=== PATIENT | female | born 1975 | race Caucasian/White ===

== ENCOUNTER 2016-07-12 11:23 | Emergency (ER) | payer MEDICAID ==
[2016-07-12 12:00] LABS: ABSOLUTE BASOPHILS # (AUTO) 0.1 10^3/uL (0.0-0.2); ABSOLUTE EOSINOPHILS # (AUTO) 0.1 10^3/uL (0.0-0.6); ABSOLUTE LYMPHOCYTES (AUTO) 3.3 10^3/uL (0.5-4.7); ABSOLUTE MONOCYTES (AUTO) 1.1 10^3/uL (0.1-1.4); ABSOLUTE NEUT (AUTO) 8.3 10^3/uL (1.7-8.2); BASOPHILS % (AUTO) 0.7 % (0-2); EOSINOPHILS % (AUTO) 0.8 % (0-6); HEMATOCRIT 38.3 % (36.0-47.0); HEMOGLOBIN 12.5 g/dL (12.0-15.5); HGB HCT DIFFERENCE -0.8; LYMPHOCYTES % (AUTO) 25.5 % (13-45); MEAN CORPUSCULAR HGB CONC 32.6 g/dL (32.0-36.0); MEAN CORPUSCULAR VOLUME 89 fl (80-97); MONOCYTES % (AUTO) 8.8 % (3-13); RED BLOOD COUNT 4.31 10^6/uL (3.72-5.28); RED CELL DISTRIBUTION WIDTH 14.4 % (11.5-14.0); SEGMENTED NEUTROPHILS % (AUTO) 64.2 % (42-78); WHITE BLOOD COUNT 12.9 10^3/uL (4.0-10.5)
--- NOTE | 2016-07-12 12:15 | ER Document Report ---
ED General - General Chief Complaint: Dizziness Stated Complaint: POSSIBLE SYNCOPE Mode of Arrival: Medic Information source: Patient Notes: Patient presents emergency department with reports of syncope. Patient reports she was at [employer] all night. They camped out. She slept from approximately 0200 until 7:30 this morning. She did not utilize her CPAP that she normally uses. She reports she ate 2 donuts, a cheese biscuit pop tart and a cup of coffee. She reports she was getting her hair cut for locks of love when she felt lightheaded dizzy, her vision and hearing decreased and she passed out for approximately 5 minutes. She denied chest pain or shortness of breath. She was sitting when this happened and lowered to the ground by the person cutting her hair. She reports this has happened to her, years ago. She also reports that she just finished taking steroids for poison lars and steroid "messes with my sugar". Her BGL was 101 via the paramedics. She reports she felt a little bit of nausea. She was given Zofran by the paramedics and declines medication at this time. Pt is requesting ice chips. She denies fever vomiting diarrhea. Denies recent cold symptoms. Patient answers all questions appropriately no obvious neuro deficits. TRAVEL OUTSIDE OF THE [place] IN LAST 30 DAYS: No - HPI Onset: Just prior to arrival Onset/Duration: Sudden Quality of pain: No pain Associated symptoms: None Exacerbated by: Denies Relieved by: Denies Similar symptoms previously: Yes - years ago Recently seen / treated by doctor: No - Related Data Allergies/Adverse Reactions: No Known Allergies Allergy (Verified 09/28/13 18:58) Past Medical History - General Information source: Patient Last Menstrual Period: IUD - Social History Smoking Status: Never Smoker Chew tobacco use (# tins/day): No Frequency of alcohol use: None Drug Abuse: None Lives with: Family Family History: Reviewed & Not Pertinent - Medical History Medical History: Other - Histoplasmosis Pulmonary Medical History: Reports: Other - sleep apnea GI Medical History: Reports: Hx Gastroesophageal Reflux Disease Psychiatric Medical History: Reports: Hx Depression Past Surgical History: Reports: Hx Genitourinary Surgery - d/c - Immunizations Hx Diphtheria, Pertussis, Tetanus Vaccination: Yes Review of Systems - Review of Systems Notes: Review HPI for review of systems., All other systems negative Physical Exam - Vital signs Vitals: Pulse Ox 97 07/12/16 11:46 - Notes Notes: PHYSICAL EXAMINATION: GENERAL: Well-appearing and in no acute distress Nontoxic looking HEAD: Atraumatic, normocephalic. EYES: Pupils equal round and reactive to light, extraocular movements intact, sclera anicteric, conjunctiva are normal. ENT: nares patent, Moist mucous membranes. NECK: Normal range of motion, supple without lymphadenopathy LUNGS: CTAB and equal. No wheezes rales or rhonchi. HEART: Regular rate and rhythm without murmurs ABDOMEN: Soft, no tenderness. No guarding, no rebound EXTREMITIES: Normal range of motion, no pitting edema. No cyanosis. NEUROLOGICAL: Cranial nerves grossly intact. Normal sensory/motor exams. PSYCH: Normal mood, normal affect. SKIN: Warm, Dry, normal turgor, no rashes or lesions noted - Neurological Neuro grossly intact: Yes Cognition: Normal Orientation: AAOx4 [place] Coma Scale Eye Opening: Spontaneous [place] Coma Scale Verbal: Oriented [place] Coma Scale Motor: Obeys Commands [place] Coma Scale Total: 15 Speech: Normal Cranial nerves: Normal Cerebellar coordination: Normal Additional motor exam normals: Equal hand welt butter - Psychological Associated symptoms: Normal affect, Normal mood Course - Re-evaluation Re-evalutation: 07/12/16 12:34 Patient reports she's feeling better right now. Declines antinausea medicine. Consider syncope differential cardiac arrhythmia to vasovagal to hypotension. Continue cardiac monitoring , labs. 07/12/16 14:40 Patient up and walk to the bathroom without complaints denies nausea or lightheadedness. Patient reports she feels really tired but otherwise fine. No further issue of syncope. Labs unremarkable, orthostatics completed without concerns, EKG SR. Pt was on limited sleep, without her cpap, pt was instructed to follow up with her primary care provider this week. She was also instructed to rest. She verbalized understanding to all instructions. - Vital Signs Vital signs: Temp Pulse Resp BP Pulse Ox 97.9 F 89 20 101/63 99 07/12/16 15:10 07/12/16 15:10 07/12/16 15:10 07/12/16 15:10 07/12/16 15:10 - Laboratory Result Diagrams: 07/12/16 11:36 07/12/16 11:36 Laboratory results interpreted by me: 07/12/16 07/12/16 07/12/16 11:36 11:36 13:49 WBC 12.9 H RDW 14.4 H Absolute Neutrophils 8.3 H Sodium 146.8 H Potassium 3.5 L BUN 27 H Glucose 129 H Urine Protein 30 H Ur Leukocyte Esterase MODERATE H - Diagnostic Test Radiology reviewed: Image reviewed, Reports reviewed - Diagnostic report text EXAM DESCRIPTION: CHEST PA/LAT COMPLETED DATE/TIME: 07/12/2016 1:00 pm REASON FOR STUDY: syncope COMPARISON: 03/25/2015 EXAM PARAMETERS: NUMBER OF VIEWS: two views TECHNIQUE: Digital Frontal and Lateral radiographic views of the chest acquired. RADIATION DOSE: NA LIMITATIONS: none FINDINGS: LUNGS AND PLEURA: No opacities, masses or pneumothorax. No pleural effusion. MEDIASTINUM AND HILAR STRUCTURES: No masses or contour abnormalities. HEART AND VASCULAR STRUCTURES: Heart normal size. No evidence for failure. BONES: No acute findings. HARDWARE: None in the chest. OTHER: No other significant finding. TECHNICAL DOCUMENTATION: JOB ID: [id number] [employer]- All Rights Reserved RAD/CHEST PA/LAT IMPRESSION: NO SIGNIFICANT RADIOGRAPHIC FINDING IN THE CHEST. Stable healed granulomatous disease - EKG Interpretation by In EKG shows normal: Sinus rhythm Discharge - Discharge Clinical Impression: Syncope Qualifiers: Syncope type: unspecified Qualified Code(s): R55 - Syncope and collapse Condition: Stable Disposition: HOME, SELF-CARE Instructions: Syncopal Episode ([facility]), Urinary Tract Infection ([facility]), Nitrofurantoin ([facility]) Additional Instructions: *You have been evaluated for syncope, UTI *Take medication as prescribed for the UTI *Follow up with your primary care provider within 5 days *Return to ED for worsening condition, changes, needs, concerns Prescriptions: Nitrofurantoin/Nitrofuran Mac [Macrobid 100 mg Capsule] 100 mg PO BID #20 capsule Referrals: SCOTT HODGES FNP-C [Primary Care Provider] - Follow up as needed
[2016-07-12 12:21] LABS: ALANINE AMINOTRANSFERASE 21 U/L (9-52); ALBUMIN 3.7 g/dL (3.5-5.0); ALKALINE PHOSPHATASE 52 U/L (38-126); ANION GAP 13 (5-19); ASPARTATE AMINO TRANSFERASE 19 U/L (14-36); BILIRUBIN,DIRECT 0.3 mg/dL (0.0-0.4); BILIRUBIN,TOTAL 0.7 mg/dL (0.2-1.3); BLOOD UREA NITROGEN 27 mg/dL (7-20); CARBON DIOXIDE 30 mmol/L (22-30); CHLORIDE 104 mmol/L (98-107); CREATINE KINASE 127 U/L (30-135); CREATININE RESULT 0.84 mg/dL (0.52-1.25); GLUCOSE 129 mg/dL (75-110); POTASSIUM 3.5 mmol/L (3.6-5.0); SODIUM 146.8 mmol/L (137-145); TOTAL PROTEIN 6.4 g/dL (6.3-8.2)
[2016-07-12] MEDS ORDERED: NORMAL SALINE 1000 ML 1,000 ML IV ONE (12:33)
[2016-07-12 12:45] LABS: CREATINE KINASE MB 1.36 ng/mL (<4.55); TROPONIN I < 0.012 ng/mL
[2016-07-12 14:04] LABS: APPEARANCE,URINE CLOUDY; BILIRUBIN,URINE NEGATIVE (NEGATIVE); GLUCOSE, URINE NEGATIVE (NEGATIVE); KETONES,URINE NEGATIVE (NEGATIVE); LEUKOCYTE ESTERASE,URINE MODERATE (NEGATIVE); NITRITE,URINE NEGATIVE (NEGATIVE); PROTEIN,URINE 30 mg/dL (NEGATIVE); URINE SPECIFIC GRAVITY 1.027; UROBILINOGEN,URINE NEGATIVE mg/dL (<2.0)
[2016-07-12 15:11] VITALS: BP 101/63
--- NOTE | 2016-07-13 17:08 | EKG REPORT ---
SEVERITY:- NORMAL ECG - SINUS RHYTHM : Confirmed by: Ju Roberts MD 13-Jul-2016 17:07:51
== END 2016-07-12 15:10 | disposition home or self-care (01) ==
LOC: ER 11:23
DX: R55 Syncope and collapse (principal); R42 Dizziness and giddiness
CPT/HCPCS: 93005; 99284; 96360; 36415; 87086; 82553; 82550; 84703; 85025; 87088; 80053; 81001; 84484; 71020; 93010; J7030

== ENCOUNTER 2016-07-19 16:09 | Emergency (ER) | payer MEDICAID ==
--- NOTE | 2016-07-19 17:50 | ER Document Report ---
ED Medical Screen (RME) - General Chief Complaint: Chest Pain Stated Complaint: DIFFICULTY BREATHING Mode of Arrival: Ambulatory Information source: Patient Notes: 41-year-old female presents with one-week duration of shortness of breath after a syncopal episode. Patient notes she was seen here after syncopal episode, states it hurts to breathe and that she has had shortness of breath. Denies any fevers or chills nausea vomiting or diarrhea I have greeted and performed a rapid initial assessment of this patient. A comprehensive ED assessment and evaluation of the patient, analysis of test results and completion of the medical decision making process will be conducted by additional ED providers. PHYSICAL EXAMINATION: GENERAL: Well-appearing, well-nourished and in no acute distress. HEAD: Atraumatic, normocephalic. EYES: Pupils equal round extraocular movements intact, conjunctiva are normal. ENT: Nares patent NECK: Normal range of motion LUNGS: No respiratory distress Musculoskeletal: Normal range of motion NEUROLOGICAL: Normal speech, normal gait. PSYCH: Normal mood, normal affect. SKIN: Warm, Dry, normal turgor, no rashes or lesions noted. TRAVEL OUTSIDE OF THE [place] IN LAST 30 DAYS: No - Related Data Allergies/Adverse Reactions: No Known Allergies Allergy (Verified 07/19/16 17:14) Past Medical History Renal/ Medical History: Denies: Hx Peritoneal Dialysis GI Medical History: Reports: Hx Gastroesophageal Reflux Disease Psychiatric Medical History: Reports: Hx Depression Past Surgical History: Reports: Hx Genitourinary Surgery - d/c - Immunizations Hx Diphtheria, Pertussis, Tetanus Vaccination: Yes Physical Exam - Vital signs Vitals: Temp Pulse Resp BP Pulse Ox 97.9 F 81 23 H 151/91 H 98 07/19/16 16:14 07/19/16 16:14 07/19/16 16:14 07/19/16 16:14 07/19/16 16:14 Course - Vital Signs Vital signs: Temp Pulse Resp BP Pulse Ox 97.9 F 81 23 H 151/91 H 98 07/19/16 16:14 07/19/16 16:14 07/19/16 16:14 07/19/16 16:14 07/19/16 16:14
[2016-07-19 18:26] LABS: ABSOLUTE EOSINOPHILS # (AUTO) 0.2 10^3/uL (0.0-0.6); ABSOLUTE MONOCYTES (AUTO) 0.7 10^3/uL (0.1-1.4); ABSOLUTE NEUT (AUTO) 4.7 10^3/uL (1.7-8.2); BASOPHILS % (AUTO) 0.4 % (0-2); EOSINOPHILS % (AUTO) 1.9 % (0-6); HEMATOCRIT 41.9 % (36.0-47.0); HEMOGLOBIN 14.1 g/dL (12.0-15.5); HGB HCT DIFFERENCE 0.4; LYMPHOCYTES % (AUTO) 35.3 % (13-45); MEAN CORPUSCULAR HEMOGLOBIN 29.6 pg (27.0-33.4); MEAN CORPUSCULAR HGB CONC 33.8 g/dL (32.0-36.0); MEAN CORPUSCULAR VOLUME 88 fl (80-97); MONOCYTES % (AUTO) 8.1 % (3-13); RED BLOOD COUNT 4.78 10^6/uL (3.72-5.28); RED CELL DISTRIBUTION WIDTH 14.4 % (11.5-14.0); SEGMENTED NEUTROPHILS % (AUTO) 54.3 % (42-78); WHITE BLOOD COUNT 8.6 10^3/uL (4.0-10.5)
[2016-07-19 18:43] LABS: ALANINE AMINOTRANSFERASE 26 U/L (9-52); ALBUMIN 4.1 g/dL (3.5-5.0); ALKALINE PHOSPHATASE 68 U/L (38-126); ANION GAP 13 (5-19); ASPARTATE AMINO TRANSFERASE 25 U/L (14-36); BILIRUBIN,DIRECT 0.3 mg/dL (0.0-0.4); BILIRUBIN,TOTAL 0.7 mg/dL (0.2-1.3); BLOOD UREA NITROGEN 15 mg/dL (7-20); CALCIUM 9.9 mg/dL (8.4-10.2); CARBON DIOXIDE 23 mmol/L (22-30); CHLORIDE 105 mmol/L (98-107); GLUCOSE 79 mg/dL (75-110); POTASSIUM 4.1 mmol/L (3.6-5.0); SODIUM 141.3 mmol/L (137-145); TOTAL PROTEIN 7.2 g/dL (6.3-8.2)
--- NOTE | 2016-07-19 19:09 | ER Document Report ---
ED General - General Chief Complaint: Chest Pain Stated Complaint: DIFFICULTY BREATHING Mode of Arrival: Ambulatory Information source: Patient Notes: 41-year-old female presents with complaints of shortness of breath of one week duration. Patient denies any fevers or chills. Patient notes that her shortness of breath has been ongoing since she is syncopal episode one week ago at which point she was seen the emergency department evaluated. Patient denies any DVT PE risk factors denies any cardiac history TRAVEL OUTSIDE OF THE [place] IN LAST 30 DAYS: No - HPI Onset: Last week Onset/Duration: Persistent Quality of pain: Achy Severity: Mild Pain Level: 1 Associated symptoms: Shortness of breath Exacerbated by: Denies Relieved by: Denies Similar symptoms previously: Yes Recently seen / treated by doctor: Yes - Related Data Allergies/Adverse Reactions: No Known Allergies Allergy (Verified 07/19/16 17:14) Past Medical History - General Information source: Patient - Social History Smoking Status: Never Smoker Cigarette use (# per day): No Chew tobacco use (# tins/day): No Smoking Education Provided: No Family History: Reviewed & Not Pertinent Patient has suicidal ideation: No Patient has homicidal ideation: No Renal/ Medical History: Denies: Hx Peritoneal Dialysis GI Medical History: Reports: Hx Gastroesophageal Reflux Disease Psychiatric Medical History: Reports: Hx Depression Past Surgical History: Reports: Hx Genitourinary Surgery - d/c - Immunizations Hx Diphtheria, Pertussis, Tetanus Vaccination: Yes Review of Systems - Review of Systems Notes: REVIEW OF SYSTEMS: CONSTITUTIONAL : Denies fever, chills, or sweats. Denies recent illness. EENT: Denies eye, ear, throat, or mouth pain or symptoms. Denies nasal or sinus congestion or discharge. Denies throat, tongue, or mouth swelling or difficulty swallowing. CARDIOVASCULAR: Denies chest pain. Denies palpitations or racing or irregular heart beat. Denies ankle edema. RESPIRATORY: Admits shortness of breath GASTROINTESTINAL: Denies abdominal pain or distention. Denies nausea, vomiting , or diarrhea. Denies blood in vomitus, stools, or per rectum. Denies black, tarry stools. Denies constipation. GENITOURINARY: Denies difficulty urinating, painful urination, burning, frequency, blood in urine, or discharge. FEMALE GENITOURINARY: Denies vaginal bleeding, heavy or abnormal periods, irregular periods. Denies vaginal discharge or odor. MUSCULOSKELETAL: Denies back or neck pain or stiffness. Denies joint pain or swelling. SKIN: Denies rash, lesions or sores. HEMATOLOGIC : Denies easy bruising or bleeding. LYMPHATIC: Denies swollen, enlarged glands. NEUROLOGICAL: Denies confusion or altered mental status. Denies passing out or loss of consciousness. Denies dizziness or lightheadedness. Denies headache. Denies weakness or paralysis or loss of use of either side. Denies problems with gait or speech. Denies sensory loss, numbness, or tingling. Denies seizures. PSYCHIATRIC: Denies anxiety or stress. Denies depression, suicidal ideation, or homicidal ideation. ALL OTHER SYSTEMS REVIEWED AND NEGATIVE. Dictation was performed using [employer] voice recognition software PHYSICAL EXAMINATION: GENERAL: Well-appearing, well-nourished and in no acute distress. HEAD: Atraumatic, normocephalic. EYES: Pupils equal round and reactive to light, extraocular movements intact, conjunctiva are normal. ENT: Nares patent, oropharynx clear without exudates. Moist mucous membranes. NECK: Normal range of motion, supple without lymphadenopathy LUNGS: Breath sounds clear to auscultation bilaterally and equal. No wheezes rales or rhonchi. HEART: Regular rate and rhythm without murmurs ABDOMEN: Soft, nontender, nondistended abdomen. No guarding, no rebound. No masses appreciated. Female : deferred Musculoskeletal: Normal range of motion, no pitting or edema. No cyanosis. NEUROLOGICAL: Cranial nerves grossly intact. Normal speech, normal gait. Normal sensory, motor exams PSYCH: Normal mood, normal affect. SKIN: Warm, Dry, normal turgor, no rashes or lesions noted. Physical Exam - Vital signs Vitals: Temp Pulse Resp BP Pulse Ox 97.9 F 81 23 H 151/91 H 98 07/19/16 16:14 07/19/16 16:14 07/19/16 16:14 07/19/16 16:14 07/19/16 16:14 Course - Re-evaluation Re-evalutation: 07/19/16 21:11 Physical examination noted no significant abnormality, vital signs were stable, patient's blood work noted no significant abnormality either d-dimer was noted to be negative. Chest x-ray was normal. Patient does have a field contact person due to a history of histoplasmosis and I have requested that she follow up with him immediately for reevaluation Otherwise patient reevaluation is in no distress satting 98% on room air and stable for discharge Patient notes chest pain only occurs on inspiration and does not appear to be cardiac in nature After performing a Medical Screening Examination, I estimate there is LOW risk for ACUTE CORONARY SYNDROME, RESPIRATORY FAILURE, SEPSIS OR MENINGITIS, thus I consider the discharge disposition reasonable. I have reevaluated this patient multiple times and no significant life threatening changes are noted. The patient and I have discussed the diagnosis and risks, and we agree with discharging home with close follow-up. We also discussed returning to the Emergency Department immediately if new or worsening symptoms occur. We have discussed the symptoms which are most concerning (e.g., changing or worsening pain, trouble swallowing or breathing, neck stiffness, fever) that necessitate immediate return. 07/19/16 21:12 - Vital Signs Vital signs: Temp Pulse Resp BP Pulse Ox 98.0 F 73 16 136/80 H 98 07/19/16 19:18 07/19/16 19:18 07/19/16 19:18 07/19/16 19:18 07/19/16 19:18 - Laboratory Result Diagrams: 07/19/16 18:00 07/19/16 18:00 Laboratory results interpreted by me: 07/19/16 18:00 RDW 14.4 H - Diagnostic Test Radiology reviewed: Image reviewed, Reports reviewed - No acute abnormality Discharge - Discharge Clinical Impression: SOB (shortness of breath) Chest pain Qualifiers: Chest pain type: unspecified Qualified Code(s): R07.9 - Chest pain, unspecified Condition: Stable Disposition: HOME, SELF-CARE Instructions: Chest Pain of Unclear Cause ([facility]) Referrals: SCOTT HODGES, LICENSED INSURANCE AGENT-C [Primary Care Provider] - Follow up as needed BERNARDA BARKER MD [ACTIVE STAFF] - Follow up in 3-5 days
[2016-07-19 19:20] VITALS: BP 136/80
--- NOTE | 2016-07-20 10:22 | EKG REPORT ---
SEVERITY:- NORMAL ECG - SINUS RHYTHM : Confirmed by: Brigette Lay 20-Jul-2016 10:21:38
== END 2016-07-19 19:25 | disposition home or self-care (01) ==
LOC: ER 16:09
DX: R06.02 Shortness of breath (principal); R07.9 Chest pain, unspecified
CPT/HCPCS: 36415; 71020; 80053; 85025; 85379; 93005; 93010; 99285

== ENCOUNTER 2018-04-13 11:55 | Emergency (ER) | payer MEDICAID, OTHER ==
--- NOTE | 2018-04-13 13:09 | ER Document Report ---
ED Medical Screen (RME) - General Chief Complaint: Numbness Stated Complaint: NUMBESS Time Seen by Provider: 04/13/18 13:01 Primary Care Provider: SCOTT HODGES FNP-C [Primary Care Provider] - Follow up as needed Mode of Arrival: Ambulatory Information source: Patient Notes: Patient presents emergency department for possible stroke symptoms. She reports on April 10, she experienced numbness to her right side. She also reports she had slurred speech and some confusion. She reports now she is just having pain on the right side. She contacted her provider, Dr. Quintanilla, and was instructed to come to the emergency department for possible stroke. Patient denies history of stroke. Reports the same thing happened on her left side sometime last year but it went away. She reports the symptoms lasted all day but went away at night. She reports her right hand feels slightly weak. She does discuss cervical radiculopathy. Denies trauma. Denies fever vomiting diarrhea. No obvious neuro deficits noted. I have greeted and performed a rapid initial assessment of this patient. A comprehensive ED assessment and evaluation of the patient, analysis of test results and completion of the medical decision making process will be conducted by additional ED providers. Dictation of this chart was performed using voice recognition software; there fore, there may be some unintended grammatical errors. TRAVEL OUTSIDE OF THE [place] IN LAST 30 DAYS: No - Related Data Allergies/Adverse Reactions: No Known Allergies Allergy (Verified 04/13/18 11:57) Past Medical History Renal/ Medical History: Denies: Hx Peritoneal Dialysis GI Medical History: Reports: Hx Gastroesophageal Reflux Disease Psychiatric Medical History: Reports: Hx Depression Past Surgical History: Reports: Hx Genitourinary Surgery - d/c - Immunizations Hx Diphtheria, Pertussis, Tetanus Vaccination: Yes Physical Exam - Vital signs Vitals: Temp Pulse Resp BP Pulse Ox 98.6 F 86 20 149/86 H 96 04/13/18 12:04/13/18 12:04/13/18 12:04/13/18 12:04/13/18 12: Course - Vital Signs Vital signs: Temp Pulse Resp BP Pulse Ox 98.6 F 86 20 149/86 H 96 04/13/18 12:04/13/18 12:04/13/18 12:04/13/18 12:19 12:19 Doctor's Discharge - Discharge Referrals: SCOTT HODGES, FOOD BEVERAGE SUPERVISOR-C [Primary Care Provider] - Follow up as needed
[2018-04-13 13:59] LABS: APPEARANCE,URINE SLIGHTLY-CLOUDY; BILIRUBIN,URINE NEGATIVE (NEGATIVE); COLOR,URINE YELLOW; GLUCOSE, URINE NEGATIVE (NEGATIVE); KETONES,URINE NEGATIVE (NEGATIVE); LEUKOCYTE ESTERASE,URINE NEGATIVE (NEGATIVE); NITRITE,URINE NEGATIVE (NEGATIVE); PROTEIN,URINE 30 mg/dL (NEGATIVE); URINE SPECIFIC GRAVITY 1.023; UROBILINOGEN,URINE NEGATIVE mg/dL (<2.0)
[2018-04-13 14:03] LABS: PROTHROMBIN TIME 12.6 SEC (11.4-15.4)
[2018-04-13 14:04] LABS: PARTIAL THROMBOPLASTIN TIME 30.8 SEC (23.5-35.8)
[2018-04-13 14:05] LABS: ABSOLUTE EOSINOPHILS # (AUTO) 0.1 10^3/uL (0.0-0.6); ABSOLUTE LYMPHOCYTES (AUTO) 2.8 10^3/uL (0.5-4.7); ABSOLUTE MONOCYTES (AUTO) 0.7 10^3/uL (0.1-1.4); ABSOLUTE NEUT (AUTO) 4.7 10^3/uL (1.7-8.2); BASOPHILS % (AUTO) 0.3 % (0-2); EOSINOPHILS % (AUTO) 1.1 % (0-6); HEMATOCRIT 38.7 % (36.0-47.0); HEMOGLOBIN 12.9 g/dL (12.0-15.5); LYMPHOCYTES % (AUTO) 33.5 % (13-45); MEAN CORPUSCULAR HEMOGLOBIN 29.5 pg (27.0-33.4); MEAN CORPUSCULAR HGB CONC 33.4 g/dL (32.0-36.0); MEAN CORPUSCULAR VOLUME 88 fl (80-97); MONOCYTES % (AUTO) 8.3 % (3-13); PLATELET COUNT 433 10^3/uL (150-450); RED BLOOD COUNT 4.38 10^6/uL (3.72-5.28); RED CELL DISTRIBUTION WIDTH 14.3 % (11.5-14.0); SEGMENTED NEUTROPHILS % (AUTO) 56.8 % (42-78); TOTAL CELLS COUNTED % (AUTO) 100 %; WHITE BLOOD COUNT 8.3 10^3/uL (4.0-10.5)
[2018-04-13 14:16] LABS: ALANINE AMINOTRANSFERASE 13 U/L (9-52); ALBUMIN 4.4 g/dL (3.5-5.0); ALKALINE PHOSPHATASE 64 U/L (38-126); ANION GAP 7 (5-19); ASPARTATE AMINO TRANSFERASE 33 U/L (14-36); BILIRUBIN,DIRECT 0.3 mg/dL (0.0-0.4); BILIRUBIN,TOTAL 0.4 mg/dL (0.2-1.3); BLOOD UREA NITROGEN 13 mg/dL (7-20); CALCIUM 8.9 mg/dL (8.4-10.2); CARBON DIOXIDE 30 mmol/L (22-30); CHLORIDE 105 mmol/L (98-107); GLUCOSE 81 mg/dL (75-110); POTASSIUM 4.4 mmol/L (3.6-5.0); SODIUM 141.7 mmol/L (137-145); TOTAL PROTEIN 7.1 g/dL (6.3-8.2)
--- NOTE | 2018-04-13 14:34 | RADIOLOGY REPORT (SQ) ---
EXAM DESCRIPTION: CT HEAD WITHOUT COMPLETED DATE/TIME: 04/13/2018 2:22 pm REASON FOR STUDY: stroke symptoms, numbness, slurred speech COMPARISON: None. TECHNIQUE: Axial images acquired through the brain without intravenous contrast. Images reviewed wi th bone, brain and subdural windows. Additional sagittal and coronal reconstructions were generated. Images stored on PACS. All CT scanners at this facility use dose modulation, iterative reconstruction, and/or weight based d osing when appropriate to reduce radiation dose to as low as reasonably achievable (ALARA). [facility]: Dose Right [facility]: CareDose [facility]: Dose Right [facility]: Teradose 4D [facility]: Parcel RADIATION DOSE: CT Rad equipment meets quality standard of care and radiation dose reduction techniq ues were employed. CTDIvol: 53.2 mGy. DLP: 1017 mGy-cm. mGy. LIMITATIONS: None. FINDINGS: VENTRICLES: Normal size and contour. CEREBRUM: No masses. No hemorrhage. No midline shift. No evidence for acute infarction. Normal gra y/white matter differentiation. No areas of low density in the white matter. CEREBELLUM: No masses. No hemorrhage. No alteration of density. No evidence for acute infarction. EXTRAAXIAL SPACES: No fluid collections. No masses. ORBITS AND GLOBE: No intra- or extraconal masses. Normal contour of globe without masses. CALVARIUM: No fracture. PARANASAL SINUSES: No fluid or mucosal thickening. SOFT TISSUES: No mass or hematoma. OTHER: No other significant finding. IMPRESSION: No acute intracranial pathology. No noncontrast evidence of stroke or hemorrhage. EVIDENCE OF ACUTE STROKE: NO. COMMENT: Quality ID # [id number]: Final reports with documentation of one or more dose reduction techniques (e.g., Automated exposure control, adjustment of the mA and/or kV according to patient size, use of iterative reconstruction technique) TECHNICAL DOCUMENTATION: JOB ID: [id number] [employer]- All Rights Reserved Reading location - IP/workstation name: [email or web address]
--- NOTE | 2018-04-13 15:30 | ER Document Report ---
ED General - General Chief Complaint: Numbness Stated Complaint: NUMBESS Time Seen by Provider: 04/13/18 13:01 Primary Care Provider: SCOTT HODGES FNP-C [Primary Care Provider] - Follow up as needed Mode of Arrival: Ambulatory Notes: 42-year-old female presents the emergency department for complaints of right upper and lower extremity numbness that occurred Thursday morning. Patient s tates that she woke up around 5 AM and heard a noise in her right ear. She went back to sleep and woke up a few hours later and noticed when she got out of bed that she had some numbness in the right upper and lower extremities. Patient thought that she just slept on that side and that is why she had the numbness. Patient states that she continued to have the symptoms all day. Symptoms completely resolved. She contacted her primary care physician yesterday via email to discuss if she should be concerned about the symptoms and she was told to go to the emergency department for an evaluation. Patient says that her symptoms have completely improved and she did not feel that she needed to come to the emergency department yesterday. Patient states that her son made her come in today for an evaluation. Patient states that she is currently completely asymptomatic. Patient denies any vision changes, speech changes, numbness, tingling, weakness, gait issues. Patient denies a history of old strokes. She denies any hypertension, hyperlipidemia. Patient denies any trauma or injury. She is not on any blood thinners. Patient does have complaints of right upper extremity pain. She states that this is chronic. Patient has cervical radiculopathy. TRAVEL OUTSIDE OF THE [place] IN LAST 30 DAYS: No - HPI Onset: Other - 3 days Quality of pain: No pain Severity: None Pain Level: Denies Associated symptoms: None Exacerbated by: Denies Relieved by: Denies Similar symptoms previously: No Recently seen / treated by doctor: No - Related Data Allergies/Adverse Reactions: No Known Allergies Allergy (Verified 04/13/18 11:57) Past Medical History - General Information source: Patient - Social History Smoking Status: Former Smoker Frequency of alcohol use: None Drug Abuse: None Family History: Reviewed & Not Pertinent Patient has suicidal ideation: No Patient has homicidal ideation: No Renal/ Medical History: Denies: Hx Peritoneal Dialysis GI Medical History: Reports: Hx Gastroesophageal Reflux Disease, Hx Hiatal Hernia Psychiatric Medical History: Reports: Hx Depression Past Surgical History: Reports: Hx Genitourinary Surgery - d/c - Immunizations Hx Diphtheria, Pertussis, Tetanus Vaccination: Yes Review of Systems - Review of Systems Constitutional: No symptoms reported EENT: No symptoms reported Cardiovascular: No symptoms reported Respiratory: No symptoms reported Gastrointestinal: No symptoms reported Genitourinary: No symptoms reported Female Genitourinary: No symptoms reported Musculoskeletal: No symptoms reported Skin: No symptoms reported Hematologic/Lymphatic: No symptoms reported Neurological/Psychological: Numbness -: Yes All other systems reviewed and negative Physical Exam - Vital signs Vitals: Temp Pulse Resp BP Pulse Ox 98.6 F 86 20 149/86 H 96 04/13/18 12:19 04/13/18 12:19 04/13/18 12:19 04/13/18 12:04/13/18 12:19 - Notes Notes: PHYSICAL EXAMINATION: GENERAL: Well-appearing, well-nourished and in no acute distress. HEAD: Atraumatic, normocephalic. EYES: Pupils equal round and reactive to light, extraocular movements intact, conjunctiva are normal. ENT: Nares patent, oropharynx clear without exudates. Moist mucous membranes. NECK: Normal range of motion, supple without lymphadenopathy LUNGS: Breath sounds clear to auscultation bilaterally and equal. No wheezes rales or rhonchi. HEART: Regular rate and rhythm without murmurs ABDOMEN: Soft, nontender, nondistended abdomen. No guarding, no rebound. No masses appreciated. Female : deferred Musculoskeletal: Normal range of motion, no pitting or edema. No cyanosis. NEUROLOGICAL: Cranial nerves grossly intact. Normal speech, normal finger to nose and gait. Normal sensory, motor exams PSYCH: Normal mood, normal affect. SKIN: Warm, Dry, normal turgor, no rashes or lesions noted. Course - Re-evaluation Re-evalutation: 04/13/18 15:32 Patient seen and evaluated. NIH 0. Not a TPA candidate. Patient has no neuro deficits. Patient states that her symptoms completely resolved. Labs were obtained and are normal. Head CT was obtained and does not show an acute process. I discussed these results with the patient and I discussed admission with the patient. Patient declines admission. Patient states that she just wants to be discharged home. Patient states that she will follow-up with her family physician to have outpatient studies ordered. Patient acknowledges the risks of leaving the hospital without further testing obtained. She understands that her symptoms may return and may be worse than previous. She understands that she may . Patient still wants to follow up outpatient with Dr. Quintanilla. I instructed the patient to return to the emergency department immediately if she begins having any numbness, tingling, weakness, vision changes, speech changes, difficulty ambulating. I instructed her to take aspirin daily. I will refer her to a neurologist. 04/13/18 15:38 - Vital Signs Vital signs: Temp Pulse Resp BP Pulse Ox 98.6 F 72 18 129/87 H 96 04/13/18 12:19 04/13/18 14:58 04/13/18 14:58 04/13/18 14:58 04/13/18 14:58 - Laboratory Result Diagrams: 04/13/18 13:31 04/13/18 13:31 Laboratory results interpreted by me: 04/13/18 04/13/18 13:31 13:31 RDW 14.3 H Urine Protein 30 H Discharge - Discharge Clinical Impression: TIA (transient ischemic attack) Condition: Stable Disposition: HOME, SELF-CARE Instructions: Transient Ischemic Attack ([facility]) Referrals: SCOTT HODGES FNP-C [Primary Care Provider] - Follow up as needed JENNYFER BARAJAS MD [EMERITUS] - Follow up as needed MARY JANE RAMOS MD [COMMUNITY BASED STAFF] - Follow up as needed BRENDON BARBER MD [NO LOCAL MD] - Follow up as needed NANDO HARVEY PA [NO LOCAL MD] - Follow up as needed
[2018-04-13 15:57] VITALS: BP 130/74
== END 2018-04-13 15:58 | disposition home or self-care (01) ==
LOC: ER 11:55
DX: G45.9 Transient cerebral ischemic attack, unspecified (principal); R20.0 Anesthesia of skin; Z87.891 Personal history of nicotine dependence
CPT/HCPCS: 36415; 70450; 80053; 81001; 85025; 85610; 85730; 99284

== ENCOUNTER 2018-06-07 21:49 | Emergency (ER) | payer OTHER ==
[2018-06-07 22:39] VITALS: BP 150/89
--- NOTE | 2018-06-08 03:50 | ER Document Report ---
ED General - General TRAVEL OUTSIDE OF THE [place] IN LAST 30 DAYS: No - HPI Onset: Other - 3 days Onset/Duration: Gradual Quality of pain: Achy, Burning Severity: Moderate Pain Level: 3 Associated symptoms: Chest pain, Earache, Headache, Nausea, Weakness Exacerbated by: Denies Relieved by: Denies Similar symptoms previously: Yes Recently seen / treated by doctor: Yes <TERA HOGAN - Last Filed: 06/08/18 03:52> <TERA LAROSE - Last Filed: 06/08/18 04:47> - General Chief Complaint: Headache Stated Complaint: HEAD,NECK,CHEST PAIN Time Seen by Provider: 06/08/18 02:23 Primary Care Provider: SCOTT HODGES FNP-C [Primary Care Provider] - Follow up as needed Notes: Patient is a 42-year-old female with a past medical history of cervical radiculopathy, presents complaining of a multitude of symptoms. Her first symptom is of having "hot spots" as she describes being painful, hot spots that move around her body. She states that these come and go, nothing seems to trigger them or make them go away. She also reports that she has had a diffuse, global, throbbing headache that started gradually, has been ongoing for the past 3 days. She also reports that she is had continuous chest pain for 3 days which is a sensation of stabbing in the left side of the chest without aeration. No associated vomiting or shortness of breath. No history of DVT or pulmonary embolus. Was seen by her primary care doctor due to chronic ear pain, recently started on prednisone which she is continuing to take and is wondering if this could be accounting for her multitude of symptoms. Has not yet followed up with her primary care physician. Has not had fever. Denies any known history of c oronary artery disease or cardiac events. (TERA HOGAN) - Related Data Allergies/Adverse Reactions: No Known Allergies Allergy (Verified 04/13/18 11:57) Past Medical History - General Information source: Patient - Social History Smoking Status: Never Smoker Chew tobacco use (# tins/day): No Frequency of alcohol use: None Drug Abuse: None Lives with: Family Family History: Reviewed & Not Pertinent Patient has suicidal ideation: No Patient has homicidal ideation: No Renal/ Medical History: Denies: Hx Peritoneal Dialysis GI Medical History: Reports: Hx Gastroesophageal Reflux Disease, Hx Hiatal Hernia Psychiatric Medical History: Reports: Hx Depression Past Surgical History: Reports: Hx Genitourinary Surgery - d/c, Hx Oral Surgery - wisdom teeth - Immunizations Hx Diphtheria, Pertussis, Tetanus Vaccination: Yes <TERA HOGAN - Last Filed: 06/08/18 03:52> Review of Systems <TERA HOGAN - Last Filed: 06/08/18 03:52> - Review of Systems Notes: Constitutional: Negative for fever. HENT: Positive for bilateral ear pain Eyes: Negative for visual changes. Cardiovascular: Positive for chest pain. Respiratory: Negative for shortness of breath. Gastrointestinal: Negative for abdominal pain, vomiting or diarrhea. Genitourinary: Negative for dysuria. Musculoskeletal: Positive for diffuse musculoskeletal pain Skin: Negative for rash. Neurological: Positive for headache 10 point ROS negative except as marked above and in HPI. (TERA HOGAN) Physical Exam - Vital signs Interpretation: Hypertensive <TERA HOGAN - Last Filed: 06/08/18 03:52> - Vital signs Vitals: Temp Pulse Resp BP Pulse Ox 98.2 F 69 16 150/89 H 99 06/07/18 22:38 06/07/18 22:38 06/07/18 22:38 06/07/18 22:38 06/07/18 22:38 Notes: PHYSICAL EXAMINATION: GENERAL: Well-appearing, well-nourished and in no acute distress. HEAD: Atraumatic, normocephalic. EYES: Pupils equal round and reactive to light, extraocular movements intact, sclera anicteric, conjunctiva are normal. ENT: nares patent, oropharynx clear without exudates. Moist mucous membranes. TMs clear bilaterally. NECK: Normal range of motion, supple without lymphadenopathy LUNGS: Breath sounds clear to auscultation bilaterally and equal. No wheezes rales or rhonchi. HEART: Regular rate and rhythm without murmurs ABDOMEN: Soft, nontender, normoactive bowel sounds. No guarding, no rebound. No masses appreciated. EXTREMITIES: Normal range of motion, no pitting or edema. No cyanosis. NEUROLOGICAL: No focal neurological deficits. Moves all extremities spontaneously and on command. PSYCH: Normal mood, normal affect. SKIN: Warm, Dry, normal turgor, no rashes or lesions noted. (TERA HOGAN) Course - Laboratory Result Diagrams: 06/08/18 03:15 <TERA HOGAN - Last Filed: 06/08/18 03:52> - Laboratory Result Diagrams: 06/08/18 03:15 <TERA LAROSE - Last Filed: 06/08/18 04:47> - Re-evaluation Re-evalutation: 06/08/18 03:50 Patient presents with multiple vague complaints that did not appear to be concerning for any acute life-threatening pathology. Vitals are within normal limits at triage and at time of discharge. Physical examination is unremarkable. Patient has tolerated oral intake without difficulty. Patient was not noted to be in distress at any point during their ER visit. At this time, based on the reassuring evaluation, I do not suspect an acute NE, pulmonary embolus, aortic dissection, acute intra-abdominal pathology, stroke, or sepsis.Will discharge with return precautions and follow-up recommendations. Verbal discharge instructions given a the bedside and opportunity for questions given. Medication warnings reviewed. Patient is in agreement with this plan and has verbalized understanding of return precautions and the need for primary care follow-up in the next 24-72 hours. (TERA HOGAN) 06/08/18 04:46 I did follow up on the patient's laboratory results for Dr. Hogan. Patient is very well-appearing on reevaluation. She describes these "hot spots" as warm areas that rotate around her body. She said sometimes will be on her arms and sometimes will be on her neck and sometimes will be on her knees. She does mention that she had a new Mirena placed in January. If she is having hot flashes that she is getting really hot and cold however they seem to be localized to certain areas of her body and then rotate. I told her I do not know the exact cause of this. Clinically she looks very well. She has no neurologic deficits on exam. Labs are evaluations unremarkable. She has no fever. Her vital signs are normal. Encouraged follow-up with a primary care doctor and also potentially speak to her phototypesetter operator about whether or not the Mirena could be contributing to her symptoms. Encouraged her to return to the ER if she has worsening of her symptoms or feels unwell. Patient agrees with plan will be discharged home. Dictation of this chart was performed using voice recognition software; therefore, there may be some unintended grammatical errors. (TERA LAROSE) - Vital Signs Vital signs: Temp Pulse Resp BP Pulse Ox 98.2 F 69 16 150/89 H 99 06/07/18 22:38 06/07/18 22:38 06/07/18 22:38 06/07/18 22:38 06/07/18 22:38 - Laboratory Laboratory results interpreted by me: 06/08/18 03:15 BUN 26 H Creatine Kinase 172 H - EKG Interpretation by Me Additional EKG results interpreted by me: 06/08/18 03:52 Sinus rhythm, rate 73. No ST elevations or depressions. QTC is 454. (TERA HOGAN) Discharge <TERA HOGAN - Last Filed: 06/08/18 03:52> <TERA LAROSE - Last Filed: 06/08/18 04:47> - Discharge Clinical Impression: Multiple complaints Chest pain Qualifiers: Chest pain type: unspecified Qualified Code(s): R07.9 - Chest pain, unspecified Headache Qualifiers: Headache type: unspecified Headache chronicity pattern: acute headache Intractability: not intractable Qualified Code(s): R51 - Headache Additional Instructions: Please return to the emergency room immediately if you experience any concerning symptoms including high fevers, severe headache, chest pain, difficulty breathing, abdominal pain, slurred speech, numbness or weakness in your arms or legs, or any other symptom that concerns you. I recommend discontinuing prednisone as this may be contributing to some of your symptoms Referrals: SCOTT HODGES, BOSTON CUTTER-C [Primary Care Provider] - Follow up as needed
[2018-06-08] MEDS ORDERED: KETOROLAC TROMETHAMINE 60 MG/2 ML SDV IM ONE (03:51)
[2018-06-08 03:56] LABS: ALANINE AMINOTRANSFERASE 19 U/L (9-52); ALBUMIN 4.2 g/dL (3.5-5.0); ALKALINE PHOSPHATASE 53 U/L (38-126); ANION GAP 10 (5-19); ASPARTATE AMINO TRANSFERASE 22 U/L (14-36); BILIRUBIN,DIRECT 0.3 mg/dL (0.0-0.4); BILIRUBIN,TOTAL 0.7 mg/dL (0.2-1.3); BLOOD UREA NITROGEN 26 mg/dL (7-20); CALCIUM 9.7 mg/dL (8.4-10.2); CARBON DIOXIDE 29 mmol/L (22-30); CHLORIDE 101 mmol/L (98-107); CREATINE KINASE 172 U/L (30-135); GLUCOSE 88 mg/dL (75-110); POTASSIUM 3.8 mmol/L (3.6-5.0); SODIUM 139.9 mmol/L (137-145); TOTAL PROTEIN 6.8 g/dL (6.3-8.2)
--- NOTE | 2018-06-08 17:20 | EKG REPORT ---
SEVERITY:- BORDERLINE ECG - SINUS RHYTHM BORDERLINE T ABNORMALITIES, INFERIOR LEADS : Confirmed by: Brigette Lay 08-Jun-2018 17:19:45
== END 2018-06-08 05:35 | disposition home or self-care (01) ==
LOC: ER 21:49
DX: R07.9 Chest pain, unspecified (principal); R51 Headache; R11.0 Nausea; R53.1 Weakness; M54.2 Cervicalgia; Z97.5 Presence of (intrauterine) contraceptive device
CPT/HCPCS: 93005; 99284; 96372; 36415; 82550; 80053; 84484; 93010; J1885

== ENCOUNTER 2019-08-24 19:13 | Emergency (ER) | payer OTHER ==
--- NOTE | 2019-08-24 19:51 | ER Document Report ---
ED Medical Screen (RME) - General Chief Complaint: Chest Pain Stated Complaint: CHEST PAIN/SHORTNESS OF BREATH Time Seen by Provider: 08/24/19 19:45 Primary Care Provider: SCOTT HODGES FNP-C [Primary Care Provider] - Follow up as needed Notes: HPI: 44-year-old female with anxiety and hypertension presenting for sudden onset of sharp left-sided chest pain with shortness of breath. Patient was talking to her at the time when it started. She had 3 separate episodes. Patient states she has had chest pain issues in the past but never like this. Patient states she was wearing a new apple watch and did capture a heart rate of 172 on her phone. States she has never had definite SVT in the past. States she has worn a Holter monitor in the past. PHYSICAL EXAMINATION: Patient is somewhat anxious there is reproducible pain in the upper left chest wall on palpation. Lung sounds are clear to auscultation regular rate and rhythm. EKG normal sinus rhythm I have greeted and performed a rapid initial assessment of this patient. A comprehensive ED assessment and evaluation of the patient, analysis of test results and completion of medical decision making process will be conducted by an additional ED providers. TRAVEL OUTSIDE OF THE [place] IN LAST 30 DAYS: No - Related Data Allergies/Adverse Reactions: No Known Allergies Allergy (Verified 04/13/18 11:57) Past Medical History Renal/ Medical History: Denies: Hx Peritoneal Dialysis GI Medical History: Reports: Hx Gastroesophageal Reflux Disease, Hx Hiatal Hernia Psychiatric Medical History: Reports: Hx Depression Past Surgical History: Reports: Hx Genitourinary Surgery - d/c, Hx Oral Surgery - wisdom teeth - Immunizations Hx Diphtheria, Pertussis, Tetanus Vaccination: Yes Physical Exam - Vital signs Vitals: Temp Pulse BP Pulse Ox 98.5 F 97 131/86 H 95 08/24/19 19:29 08/24/19 19:29 08/24/19 19:29 08/24/19 19:29 Course - Vital Signs Vital signs: Temp Pulse Resp BP Pulse Ox 98.5 F 97 131/86 H 95 08/24/19 19:29 08/24/19 19:29 08/24/19 19:29 08/24/19 19:29 Doctor's Discharge - Discharge Referrals: SCOTT HODGES FNP-C [Primary Care Provider] - Follow up as needed
--- NOTE | 2019-08-24 20:23 | RADIOLOGY REPORT (SQ) ---
EXAM DESCRIPTION: X-ray, single view of the chest CLINICAL HISTORY: 44 years Female, SVT COMPARISON: Two views of the chest 07/12/2016 FINDINGS: Lungs: Calcified granuloma in the left upper lobe is unchanged. The lungs are clear. No pneumonia or edema. No pneumothorax or pleural effusion. Mediastinum: Cardiac and mediastinal silhouette are normal. Bones: Osseous structures are normal. IMPRESSION: No acute process. No significant interval change.
[2019-08-24 20:33] LABS: ABSOLUTE EOSINOPHILS # (AUTO) 0.1 10^3/uL (0.0-0.6); ABSOLUTE LYMPHOCYTES (AUTO) 2.8 10^3/uL (0.5-4.7); ABSOLUTE MONOCYTES (AUTO) 0.8 10^3/uL (0.1-1.4); ABSOLUTE NEUT (AUTO) 6.3 10^3/uL (1.7-8.2); BASOPHILS % (AUTO) 0.3 % (0-2); EOSINOPHILS % (AUTO) 1.3 % (0-6); HEMATOCRIT 41.3 % (36.0-47.0); HEMOGLOBIN 13.9 g/dL (12.0-15.5); LYMPHOCYTES % (AUTO) 27.7 % (13-45); MEAN CORPUSCULAR HEMOGLOBIN 29.8 pg (27.0-33.4); MEAN CORPUSCULAR HGB CONC 33.6 g/dL (32.0-36.0); MEAN CORPUSCULAR VOLUME 89 fl (80-97); PLATELET COUNT 428 10^3/uL (150-450); RED BLOOD COUNT 4.65 10^6/uL (3.72-5.28); RED CELL DISTRIBUTION WIDTH 14.6 % (11.5-14.0); SEGMENTED NEUTROPHILS % (AUTO) 62.7 % (42-78); TOTAL CELLS COUNTED % (AUTO) 100 %; WHITE BLOOD COUNT 10.1 10^3/uL (4.0-10.5)
[2019-08-24 20:41] LABS: INTERNATIONAL RATION (INR) 0.93; PROTHROMBIN TIME 12.4 SEC (11.4-15.4)
--- NOTE | 2019-08-24 20:48 | ER Document Report ---
ED General - General Chief Complaint: Chest Pain Stated Complaint: CHEST PAIN/SHORTNESS OF BREATH Time Seen by Provider: 08/24/19 19:45 Primary Care Provider: SCOTT HODGES FNP-C [COMMUNITY BASED STAFF] - Follow up as needed Mode of Arrival: Ambulatory Notes: Serafin BEADING SAWYER notes HPI: 44-year-old female with anxiety and hypertension presenting for sudden onset of sharp left-sided chest pain with shortness of breath. Patient was talking to her at the time when it started. She had 3 separate episodes. Patient states she has had chest pain issues in the past but never like this. Patient states she was wearing a new apple watch and did capture a heart rate of 172 on her phone. States she has never had definite SVT in the past. States she has worn a Holter monitor in the past. PHYSICAL EXAMINATION: Patient is somewhat anxious there is reproducible pain in the upper left chest wall on palpation. Lung sounds are clear to auscultation regular rate and rhythm. 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 Patient denies any history of DVT pulmonary embolism HI COPD emphysema thyroid problems or chest trauma. She admits to prior history of tachycardia but has not had it verified by EKG in the past tonight while sitting on her couch with her she began to have a rapid heart rate with her Fitbit showing 100 bpm but her 's apple for phone showed SVT greater than 180 bpm patient presents this picture to BEADING SAWYER and myself. Patient reports she has 5 children 23 years old 20 years old 19-year-old 11-year-old and 6-year-old and she [place] bl[place]. Reports she had some chest pain which caused her to scream out and grabbed her chest and she came in with some shortness of breath to this ERHPI: 44-year-old female with anxiety and hypertension presenting for sudden onset of sharp left-sided chest pain with shortness of breath. Patient was talking to her at the time when it started. She had 3 separate episodes. Patient states she has had chest pain issues in the past but never like this. Patient states she was wearing a new apple watch and did capture a heart rate of 172 on her phone. States she has never had definite SVT in the past. States she has worn a Holter monitor in the past. PHYSICAL EXAMINATION: Patient is somewhat anxious there is reproducible pain in the upper left chest wall on palpation. Lung sounds are clear to auscultation regular rate and rhythm. EKG normal sinus rhythm . The symptoms began just prior to arrival. TRAVEL OUTSIDE OF THE [place] IN LAST 30 DAYS: No - HPI Onset: Just prior to arrival Quality of pain: Achy Severity: Moderate Pain Level: 2 - Pain moderate pain Associated symptoms: Chest pain, Hurts to breath, Shortness of breath - Shortness of breath, Weakness Exacerbated by: Denies Relieved by: Denies Similar symptoms previously: Yes Recently seen / treated by doctor: No - Related Data Allergies/Adverse Reactions: No Known Allergies Allergy (Verified 04/13/18 11:57) Home Medications: duloxitine, aprazolam, pantoprazole, rpbaxin, lisinopril, t ramadol, toradol Past Medical History - General Information source: Patient - Social History Smoking Status: Former Smoker Cigarette use (# per day): No Chew tobacco use (# tins/day): No Smoking Education Provided: No Frequency of alcohol use: None Drug Abuse: None Lives with: Family Family History: Reviewed & Not Pertinent Patient has suicidal ideation: No Patient has homicidal ideation: No Renal/ Medical History: Denies: Hx Peritoneal Dialysis GI Medical History: Reports: Hx Gastroesophageal Reflux Disease, Hx Hiatal Hernia Psychiatric Medical History: Reports: Hx Depression Past Surgical History: Reports: Hx Genitourinary Surgery - d/c, Hx Oral Surgery - wisdom teeth - Immunizations Hx Diphtheria, Pertussis, Tetanus Vaccination: Yes Review of Systems - Review of Systems Constitutional: See HPI, Weakness EENT: No symptoms reported Cardiovascular: See HPI, Chest pain, Heart racing, Dyspnea, Dizziness, Lightheaded Respiratory: See HPI, Hurts to breathe, Short of breath Gastrointestinal: No symptoms reported Genitourinary: No symptoms reported Female Genitourinary: No symptoms reported Musculoskeletal: No symptoms reported Skin: No symptoms reported Hematologic/Lymphatic: No symptoms reported Neurological/Psychological: No symptoms reported Physical Exam - Vital signs Vitals: Temp Pulse BP Pulse Ox 98.5 F 97 131/86 H 95 08/24/19 19:29 08/24/19 19:29 08/24/19 19:29 08/24/19 19:29 Interpretation: Normal - General General appearance: Anxious - HEENT Head: Normocephalic, Atraumatic Eyes: Normal Pupils: PERRL Mouth/Lips: Normal Pharynx: Normal Neck: Normal - Respiratory Respiratory status: No respiratory distress Chest status: Nontender Breath sounds: Normal Chest palpation: Normal - Cardiovascular Rhythm: Tachycardia Heart sounds: Normal auscultation Murmur: No - Abdominal Inspection: Normal Distension: No distension Bowel sounds: Normal Tenderness: Nontender Organomegaly: No organomegaly - Rectal Hemorrhoids: Other - deferred - Genitourinary Speculum exam: Other - deferred - Back Back: Normal - Extremities General upper extremity: Normal inspection, Nontender, Normal color, Normal ROM, Normal temperature General lower extremity: Normal inspection, Nontender, Normal color, Normal ROM, Normal temperature, Normal weight bearing. No: Brandie's sign - Neurological Neuro grossly intact: Yes Cognition: Normal Orientation: AAOx4 [place] Coma Scale Eye Opening: Spontaneous [place] Coma Scale Verbal: Oriented [place] Coma Scale Motor: Obeys Commands [place] Coma Scale Total: 15 Speech: Normal Motor strength normal: LUE, RUE, LLE, RLE Sensory: Normal - Psychological Associated symptoms: Anxious - Skin Skin Temperature: Warm Skin Moisture: Dry Skin Color: Normal Course - Vital Signs Vital signs: Temp Pulse Resp BP Pulse Ox 98.5 F 97 131/86 H 95 08/24/19 19:48 08/24/19 19:29 08/24/19 19:29 08/24/19 19:29 - Laboratory Result Diagrams: 08/24/19 20:15 08/24/19 20:15 Laboratory results interpreted by me: 08/24/19 08/24/19 20:15 21:20 RDW 14.6 H Urine Urobilinogen 2.0 H Urine Ascorbic Acid 40 H Critical Care Note - Critical Care Note Total time excluding time spent on procedures (mins): 90 Comments: I discussed this case with Dr. Thacker and he advised he has taken a cell phone picture of the demographics and will arrange for patient to be seen on Thursday in his office. Discharge - Discharge Clinical Impression: Tachycardia Chest pain Qualifiers: Chest pain type: unspecified Qualified Code(s): R07.9 - Chest pain, unspecified Disposition: HOME, SELF-CARE Additional Instructions: Follow-up with Dr. Salas medicare insurance specialist return to ER if symptoms persist or r esume take medicines as directed Referrals: SCOTT HODGES, BROACH TROUBLE SHOOTER-C [COMMUNITY BASED STAFF] - Follow up as needed
[2019-08-24 20:50] LABS: ALBUMIN 4.2 g/dL (3.5-5.0); ALKALINE PHOSPHATASE 69 U/L (38-126); ANION GAP 7 (5-19); ASPARTATE AMINO TRANSFERASE 25 U/L (14-36); BILIRUBIN,TOTAL 0.4 mg/dL (0.2-1.3); BLOOD UREA NITROGEN 13 mg/dL (7-20); CALCIUM 9.4 mg/dL (8.4-10.2); CARBON DIOXIDE 29 mmol/L (22-30); CHLORIDE 103 mmol/L (98-107); CREATINE KINASE 130 U/L (30-135); GLUCOSE 95 mg/dL (75-110); POTASSIUM 4.7 mmol/L (3.6-5.0); TOTAL PROTEIN 7.2 g/dL (6.3-8.2)
[2019-08-24 21:03] LABS: D-DIMER < 0.27 ug/mL (0.00-0.50)
[2019-08-24 21:40] LABS: APPEARANCE,URINE CLEAR; BILIRUBIN,URINE NEGATIVE (NEGATIVE); COLOR,URINE YELLOW; GLUCOSE, URINE NEGATIVE (NEGATIVE); KETONES,URINE NEGATIVE (NEGATIVE); LEUKOCYTE ESTERASE,URINE NEGATIVE (NEGATIVE); NITRITE,URINE NEGATIVE (NEGATIVE); PROTEIN,URINE NEGATIVE (NEGATIVE)
[2019-08-24 21:53] LABS: URINE AMPHETAMINES SCREEN NEGATIVE; URINE BARBITURATES SCREEN NEGATIVE; URINE COCAINE SCREEN NEGATIVE; URINE MARIJUANA (THC) SCREEN NEGATIVE; URINE METHADONE SCREEN NEGATIVE; URINE PHENCYCLIDINE SCREEN NEGATIVE
[2019-08-24 21:54] LABS: URINE BENZODIAZEPINES SCREEN UNCONFIRMED POSITIVE
[2019-08-24] MEDS ORDERED: OXYCODONE-ACETAMINOPHEN 5-325 MG TABLET PO ONE (22:04)
[2019-08-24] MEDS ORDERED: ONDANSETRON 4 MG TAB.RAPDIS PO ONE (22:05)
[2019-08-24] MEDS ORDERED: PROPRANOLOL HCL 10 MG TABLET PO ONE (22:05)
[2019-08-24 22:44] VITALS: BP 123/82
[2019-08-24] MEDS ORDERED: PROPRANOLOL HCL 20 MG TABLET PO ONE (22:52)
--- NOTE | 2019-08-24 23:38 | EKG REPORT ---
SEVERITY:- NORMAL ECG - SINUS RHYTHM : Confirmed by: Brigette Lay 24-Aug-2019 23:38:02
== END 2019-08-24 22:53 | disposition home or self-care (01) ==
LOC: ER 19:13
DX: R07.9 Chest pain, unspecified (principal); R00.0 Tachycardia, unspecified; R06.02 Shortness of breath; R53.1 Weakness; F41.9 Anxiety disorder, unspecified; I10 Essential (primary) hypertension
CPT/HCPCS: 93005; 99291; 99292; 36415; 82550; 83735; 84443; 85025; 85610; 81025; 80053; 81001; 84484; 80307; 85379; 71045; 93010; S0119; J3490

== ENCOUNTER 2019-09-22 16:40 | Emergency (ER) | payer OTHER ==
--- NOTE | 2019-09-22 18:26 | ER Document Report ---
ED Medical Screen (RME) - General Chief Complaint: Chest Pain Stated Complaint: CHEST PAIN Time Seen by Provider: 09/22/19 18:11 Primary Care Provider: RENETTA MARCELINO PA [Primary Care Provider] - Follow up as needed Notes: HPI: 44-year-old female presenting to the emergency department complaining of elevated heart rate today. Patient states she was seen 2 weeks ago for similar complaint. Did follow-up with cardiology is wearing a Holter monitor today, had another episode that lasted about 5 minutes with some chest pain and shortness of breath. States this is the second or third time this week that she has had an episode like this. She did catch the rhythm on her apple watch. 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 EKG is a normal sinus rhythm without visible ectopy or visible SVT. Patient did have the rhythm from earlier today captured on her phone and it does appear to be SVT with a rate of 169. Discussed with Dr. Mcclellan I have greeted and performed a rapid initial assessment of this patient. A comprehensive ED assessment and evaluation of the patient, analysis of test results and completion of medical decision making process will be conducted by an additional ED providers. TRAVEL OUTSIDE OF THE [place] IN LAST 30 DAYS: No - Related Data Allergies/Adverse Reactions: prednisone Allergy (Verified 09/22/19 18:09) Home Medications: lisinopril. methocarbam. alprazolam. ketorolac. tramadol Past Medical History - Social History Chew tobacco use (# tins/day): No Frequency of alcohol use: None Drug Abuse: None Renal/ Medical History: Denies: Hx Peritoneal Dialysis GI Medical History: Reports: Hx Gastroesophageal Reflux Disease, Hx Hiatal Hernia Psychiatric Medical History: Reports: Hx Depression Past Surgical History: Reports: Hx Genitourinary Surgery - d/c, Hx Oral Surgery - wisdom teeth - Immunizations Hx Diphtheria, Pertussis, Tetanus Vaccination: Yes Physical Exam - Vital signs Vitals: Temp Pulse Resp BP Pulse Ox 98.6 F 78 20 136/73 H 96 09/22/19 16:52 09/22/19 16:52 09/22/19 16:52 09/22/19 16:52 09/22/19 16:52 Course - Vital Signs Vital signs: Temp Pulse Resp BP Pulse Ox 98.6 F 78 20 136/73 H 96 09/22/19 16:52 09/22/19 16:52 09/22/19 16:52 09/22/19 16:52 09/22/19 16:52 Doctor's Discharge - Discharge Referrals: RENETTA MARCELINO PA [Primary Care Provider] - Follow up as needed
[2019-09-22] MEDS ORDERED: ASPIRIN 81 MG TABLET, CHEWABLE PO ONE (18:36)
[2019-09-22 18:51] LABS: ABSOLUTE EOSINOPHILS # (AUTO) 0.2 10^3/uL (0.0-0.6); ABSOLUTE LYMPHOCYTES (AUTO) 2.8 10^3/uL (0.5-4.7); ABSOLUTE MONOCYTES (AUTO) 0.8 10^3/uL (0.1-1.4); ABSOLUTE NEUT (AUTO) 5.1 10^3/uL (1.7-8.2); BASOPHILS % (AUTO) 0.4 % (0-2); EOSINOPHILS % (AUTO) 1.9 % (0-6); HEMOGLOBIN 12.8 g/dL (12.0-15.5); LYMPHOCYTES % (AUTO) 31.5 % (13-45); MEAN CORPUSCULAR HEMOGLOBIN 29.9 pg (27.0-33.4); MEAN CORPUSCULAR HGB CONC 33.6 g/dL (32.0-36.0); MEAN CORPUSCULAR VOLUME 89 fl (80-97); MONOCYTES % (AUTO) 8.8 % (3-13); PLATELET COUNT 381 10^3/uL (150-450); RED BLOOD COUNT 4.27 10^6/uL (3.72-5.28); RED CELL DISTRIBUTION WIDTH 14.6 % (11.5-14.0); SEGMENTED NEUTROPHILS % (AUTO) 57.4 % (42-78); TOTAL CELLS COUNTED % (AUTO) 100 %; WHITE BLOOD COUNT 8.9 10^3/uL (4.0-10.5)
[2019-09-22 19:04] LABS: ALBUMIN 4.1 g/dL (3.5-5.0); ALKALINE PHOSPHATASE 62 U/L (38-126); ASPARTATE AMINO TRANSFERASE 31 U/L (14-36); BILIRUBIN,TOTAL 0.5 mg/dL (0.2-1.3); BLOOD UREA NITROGEN 14 mg/dL (7-20); CALCIUM 9.2 mg/dL (8.4-10.2); CARBON DIOXIDE 30 mmol/L (22-30); CHLORIDE 103 mmol/L (98-107); GLUCOSE 81 mg/dL (75-110); POTASSIUM 4.3 mmol/L (3.6-5.0); TOTAL PROTEIN 6.9 g/dL (6.3-8.2)
[2019-09-22 19:16] LABS: ANION GAP 4 (5-19)
--- NOTE | 2019-09-22 19:35 | EKG REPORT ---
SEVERITY:- NORMAL ECG - SINUS RHYTHM : Confirmed by: Ju Roberts MD 22-Sep-2019 19:34:48
--- NOTE | 2019-09-22 22:43 | ER Document Report ---
ED General - General Chief Complaint: Chest Pain Stated Complaint: CHEST PAIN Time Seen by Provider: 09/22/19 18:11 Primary Care Provider: RENETTA MARCELINO PA [NO LOCAL MD] - Follow up as needed TRAVEL OUTSIDE OF THE [place] IN LAST 30 DAYS: No - HPI Notes: Patient is a 44-year-old female who presents to the emergency department for evaluation of chest pain and palpitations. She has been having these for years. She comes in today because this happened twice in 1 week. She has a monitor in place by Dr. Taylor. She states she gets a sharp and stabbing chest pain when this happens. She states she get a smart watch on her with her most recent episode, said her heart rate was in the 170s, and she had sharp and stabbing left-sided chest pain. She really has not had much in the way of episodes since arriving here, except some "fleeting" chest pain. She denies any associated nausea, diaphoresis, near syncope at this time. She did have some shortness of breath with the symptoms earlier. She admits to drinking 2 cups of coffee in the mornings and a cup of sweet tea in the afternoon. - Related Data Allergies/Adverse Reactions: prednisone Allergy (Verified 09/22/19 18:09) Home Medications: lisinopril. methocarbam. alprazolam. ketorolac. tramadol Past Medical History - General Information source: Patient - Social History Smoking Status: Former Smoker Chew tobacco use (# tins/day): No Frequency of alcohol use: None Drug Abuse: None Family History: Reviewed & Not Pertinent Patient has homicidal ideation: No - Past Medical History Cardiac Medical History: Reports: Hx Hypertension Renal/ Medical History: Denies: Hx Peritoneal Dialysis GI Medical History: Reports: Hx Gastroesophageal Reflux Disease, Hx Hiatal Hernia Psychiatric Medical History: Reports: Hx Depression Past Surgical History: Reports: Hx Genitourinary Surgery - d/c, Hx Oral Surgery - wisdom teeth - Immunizations Hx Diphtheria, Pertussis, Tetanus Vaccination: Yes Review of Systems - Review of Systems Cardiovascular: See HPI -: Yes All other systems reviewed and negative Physical Exam - Vital signs Vitals: Temp Pulse Resp BP Pulse Ox 98.6 F 78 20 136/73 H 96 09/22/19 16:52 09/22/19 16:52 09/22/19 16:52 09/22/19 16:52 09/22/19 16:52 - Notes Notes: Vital signs reviewed, please refer to chart. Head is normocephalic, atraumatic. Pupils equal round, reactive to light. Neck is supple without meningismus. Heart is regular rate and rhythm. Lungs are clear to auscultation bilaterally. Abdomen is soft, nontender, normoactive bowel sounds throughout. Extremities without cyanosis, clubbing. Posterior calves are nontender. Peripheral pulses are equal. Skin is warm and dry. Patient is awake, alert, neurological exam is nonfocal. Course - Re-evaluation Re-evalutation: 09/22/19 22:48 Patient presents to the emergency department for evaluation. She has chest pain and palpitations. She is asymptomatic while here. She was on a monitor for some time. She had laboratory investigations including CBC, CMP, cardiac enzymes, thyroid studies. Her EKG was unremarkable. Telemetry is unremarkable. The patient really did not have much in the way of symptoms while here. She actually has a monitor in place already by cardiology. She has an appointment to follow-up. The patient is told that she should decrease her caffeine intake. Otherwise, I can not find any significant etiology for her pain. Her heart rate while sitting here is been in the 60s and 70s. She has no posterior calf tenderness. She has no risk factors for pulmonary embolus. She has had a CTA in the past which was negative. She is following with cardiology. She is to return to the emergency department for worsening or new concerning symptoms of any sort. - Vital Signs Vital signs: Temp Pulse Resp BP Pulse Ox 98.0 F 78 14 125/72 99 09/22/19 21:01 09/22/19 16:52 09/22/19 21:01 09/22/19 21:01 09/22/19 21:01 - Laboratory Result Diagrams: 09/22/19 18:35 09/22/19 18:35 Laboratory results interpreted by me: 09/22/19 09/22/19 18:35 18:35 RDW 14.6 H Sodium 136.5 L Anion Gap 4 L - EKG Interpretation by Me Additional EKG results interpreted by me: 09/22/19 22:49 With a rate of 79 bpm. Normal axis and intervals. No acute ST changes concerning for ischemia or infarction. Discharge - Discharge Clinical Impression: Palpitations Chest pain Qualifiers: Chest pain type: unspecified Qualified Code(s): R07.9 - Chest pain, unspecified Condition: Stable Disposition: HOME, SELF-CARE Instructions: Chest Pain of Unclear Cause ([facility]), Palpitations (Irregular or Rapid Heartrate) ([facility]) Additional Instructions: No clear cause was found for your symptoms today. No arrhythmia was noted. No anemia, abnormality in your electrolytes, thyroid functions, or cardiac enzymes was detected. Your telemetry did not show any significant abnormalities. Please turn in your recorder tomorrow, follow-up with Dr. Taylor as scheduled. Return to the emergency department with worsening or new concerning symptoms of any sort. Referrals: RENETTA MARCELINO PA [NO LOCAL MD] - Follow up as needed
[2019-09-22 23:07] VITALS: BP 122/77
== END 2019-09-22 23:10 | disposition home or self-care (01) ==
LOC: ER 16:40
DX: R00.2 Palpitations (principal); R07.9 Chest pain, unspecified; I10 Essential (primary) hypertension
CPT/HCPCS: 36415; 80053; 83735; 84443; 84484; 85025; 93005; 93010; 99285

== ENCOUNTER → 2019-09-29 | Outpatient (CLI) | payer OTHER ==
--- NOTE | 2019-09-29 15:31 | RADIOLOGY REPORT (SQ) ---
EXAM DESCRIPTION: MRI LUMBAR SPINE WITHOUT IMAGES COMPLETED DATE/TIME: 09/29/2019 10:08 am REASON FOR STUDY: M54.5 LOW BACK PAIN M54.2 CERVICALGIA M54.5 LOW BACK PAIN COMPARISON: None. TECHNIQUE: Sagittal and Axial imaging includes T1, T2, STIR and gradient echo sequences. Coronal T2/ HASTE imaging. LIMITATIONS: None. FINDINGS: VISUALIZED UPPER ABDOMEN: Limited evaluation. No acute or suspicious findings suggested. SEGMENTATION: No transitional anatomy. The lowest well-developed disc space is labeled L5-S1. ALIGNMENT: Anatomic. VERTEBRAE: Intact. BONE MARROW: Reactive marrow changes are seen at the L5-S1 apposing endplates. DISC SIGNAL: Intervertebral disc desiccation and loss of height are seen predominantly at the L3 thro ugh S1 levels. A focal annular fissure is seen at the L4/5 level. POSTERIOR ELEMENTS: Generally intact. No pars defect evident. HARDWARE: None in the spine. CORD AND CONUS: Normal in size and signal intensity. Conus at the appropriate level. SOFT TISSUES: No aortic aneurysm seen. No bulky retroperitoneal adenopathy or mass. No paraspinal mas s or fluid. L1-L2: No significant spinal stenosis or exit foraminal stenosis. L2-L3: No significant spinal stenosis or exit foraminal stenosis. L3-L4: Broad-based posterior disc bulge in the setting of facet arthropathy results in mild central c anal narrowing. The neural foramina remain patent. L4-L5: Broad-based posterior disc bulge with central annular fissure in the setting of facet arthropa thy results in mild central canal narrowing. The neural foramina remain patent. L5-S1: Disc desiccation and loss of height with posterior disc bulge without significant central yordan l or neural foraminal stenosis. LOWER THORACIC: Incompletely imaged. No stenosis seen. SACRUM: Visualized upper sacrum intact. OTHER: No other significant findings. IMPRESSION: Mild multilevel spondylotic changes without significant central canal or neural foramina l stenosis. TECHNICAL DOCUMENTATION: JOB ID: [id number] [employer]- All Rights Reserved Reading location - IP/workstation name: [email or web address]
--- NOTE | 2019-09-29 15:38 | RADIOLOGY REPORT (SQ) ---
EXAM DESCRIPTION: MRI CERVICAL SPINE WITHOUT IMAGES COMPLETED DATE/TIME: 09/29/2019 10:08 am REASON FOR STUDY: M54.2 CERVICALGIA M54.2 CERVICALGIA M54.5 LOW BACK PAIN COMPARISON: None. TECHNIQUE: Sagittal and Axial imaging includes T1, T2, STIR and gradient echo sequences. LIMITATIONS: None. FINDINGS: ALIGNMENT: Relative straightening of the normal lordotic curvature may be due in part to p ositioning. VERTEBRAE: Intact. BONE MARROW: Normal. No marrow replacement or reactive changes. DISCS: Intervertebral disc desiccation and loss of height are seen predominantly at the C3 through C6 levels. HARDWARE: None in the spine. CORD AND BASE OF BRAIN: Normal in size and signal intensity. SOFT TISSUES: No soft tissue masses. C1-C2: No significant spinal stenosis. C2-C3: No significant spinal stenosis or exit foraminal stenosis. C3-C4: Disc osteophyte complex asymmetric to the right results in mild right neural foraminal and mil d central canal stenosis, contouring the ventral cord. The left neural foramen remains patent. A cl eft of CSF signal is seen posterior to the cord at this level. No syrinx. C4-C5: Disc osteophyte complex asymmetric to the left results in mild left neural foraminal narrowing . The central canal and right neural foramen remain patent. C5-C6: Disc osteophyte complex, asymmetric to the left results in moderate left neural foraminal and mild central canal stenosis, contouring the ventral cord. A thin cleft of CSF signal is seen posteri or to the cord at this level. No syrinx. C6-C7: Disc osteophyte complex asymmetric to the left results an mild left neural foraminal and trace central canal narrowing. The right neural foramen remains patent. C7-T1: No significant spinal stenosis or exit foraminal stenosis. UPPER THORACIC: Incompletely imaged. No significant spinal stenosis or exit foraminal stenosis. OTHER: No other significant finding. IMPRESSION: Mid cervical spondylotic changes demonstrating contouring of the cord at several levels without impingement or syrinx. These findings appear to be somewhat asymmetric to the left demonstra ting [id number] left neural foraminal narrowing at several levels as detailed above. TECHNICAL DOCUMENTATION: JOB ID: [id number] 2010 [employer]- All Rights Reserved Reading location - IP/workstation name: [email or web address]
== END ==
LOC: RAD 08:59
PROVIDERS: ATTEND Physician Assistant
DX: M54.2 Cervicalgia (principal); M54.5 Low back pain
CPT/HCPCS: 72141; 72148

== ENCOUNTER → 2020-01-09 | Outpatient (CLI) | payer OTHER ==
[~2020-01-09] MED LIST: REGADENOSON INJ 0.4 MG/5 ML DISP.SYRIN IV ONE
--- NOTE | 2020-01-10 12:54 | DRAGON STRESS TEST REPORT ---
Pharmacological nuclear stress test Date: 01/09/2020 Referring physician: Ben Carrillo MD Performing physician: Rod Carrillo MD Indication: Chest pain Clinical history 44-year-old lady with episodes of supraventricular tachycardia also experienced episodes of chest pain. Because of this we proceeded with pharmacological nuclear stress test. Procedure The patient presented to the stress lab. Initially rest images were obtained according to standard protocol after the injection of 15.61 millicurie technetium 99m sestamibi. Subsequently the patient underwent pharmacological stress utilizing 0.4 mg of regadenoson intravenously. The patient's EKG and vital signs were monitored throughout the procedure. Subsequently patient was injected with 47.5 millicuries of technetium 99m sestamibi. After a period of rest, stress images were obtained according to standard protocol. EKG showed sinus rhythm at 81 beats per minute. The patient's stress EKG did not show any evidence for myocardial ischemia. There were no arrhythmias observed. Raw as well as processed rest and stress images were reviewed. There was mild to moderate gut uptake which did not interfere with the study. The rest and stress images show uniform uptake of radioactive isotope without any fixed or reversible defects to suggest myocardial ischemia or myocardial infarction. There is normal contractility post-rest. The calculated ejection fraction is 55 %. The TID ratio is 1.04. There is evidence of breast attenuation on both the rest and stress images. Conclusion The stress EKG is negative for myocardial ischemia There is no scintigraphic evidence of myocardial infarction or ischemia provoked by pharmacological stress. There is normal contractility post-stress. The gated left ventricular ejection fraction is 55 %. The patient will be given an appointment to discuss these results. [facility]
== END ==
LOC: RAD 07:47
PROVIDERS: ATTEND Internal Medicine
DX: I25.9 Chronic ischemic heart disease, unspecified (principal); I10 Essential (primary) hypertension; I47.1 Supraventricular tachycardia
CPT/HCPCS: 93017; 78452; A9500; J2785; Q9969